=== PATIENT | female | born 1940 | race Caucasian/White ===

== ENCOUNTER 2017-04-08 16:42 | Inpatient (IN) | payer MEDICARE, OTHER ==
--- NOTE | 2017-04-08 17:34 | EDM.PDOC ---
ED HPI GENERAL MEDICAL PROBLEM - General Chief Complaint: Abdominal Pain Stated Complaint: upper abdominal pain Time Seen by Provider: 04/08/17 17:25 Source of Information: Reports: Patient History Limitations: Reports: No Limitations - History of Present Illness INITIAL COMMENTS - FREE TEXT/NARRATIVE: Seema is a 76 yo female who presents to the ER with complaints of indigestion. States she started having abdominal pain around 4 am this morning. States she tried taking some TUMS with no relief. Admits she has been nauseated all day but denies any emesis. States she has been to the bathroom quite a bit as well with frequent bowel movements (over 10) but denies any diarrhea. States she has not ate anything all day but has been able to drink some fluids. The pain is above the belly button and admits it goes into both upper quadrants. States she drank a glass of prune juice this morning d/t concern of constipation. Onset: Today Onset Date: 04/08/17 Onset Time: 04:00 Duration: Constant. No: Getting Worse Location: Reports: Abdomen Associated Symptoms: Reports: Nausea/Vomiting Bilateral Upper Abdominal Pain Score (Numeric/FACES): 9 - Related Data Allergies Allergy/AdvReac Type Severity Reaction Status Date / Time No Known Allergies Allergy Verified 04/08/17 16:59 Home Meds: Home Meds Aspirin [Halfprin] 81 mg PO DAILY 12/23/14 [History] Calcium Carb/D3/Magnesium/Zinc [Hknaioi-Cke-Flxu-Vit D] 2 tab PO DAILY 12/23/14 [History] Cholecalciferol (Vitamin D3) [Vitamin D] 2,000 unit PO DAILY 12/23/14 [History] Levothyroxine Sodium [Synthroid] 75 mcg PO DAILY 12/23/14 [History] Multivitamin [Multi-Vitamin Daily] 1 tab PO DAILY 12/23/14 [History] Simvastatin [Simvastatin] 20 mg PO BEDTIME 12/23/14 [History] Ascorbic Acid [Vitamin C] 1,000 mg PO DAILY 01/10/17 [History] Denosumab [Prolia] 60 mg SUBCUT ONETIME 01/10/17 [History] Past Medical History Cardiovascular History: Reports: Hypertension Genitourinary History: Reports: Other (See Below) Other Genitourinary History: nocturia Musculoskeletal History: Reports: Arthritis, Osteoporosis Endocrine/Metabolic History: Reports: Hypothyroidism, Vitamin D Deficiency, Other (See Below) Other Endocrine/Metabolic History: grave's disease - Past Surgical History HEENT Surgical History: Reports: Cataract Surgery, Eye Surgery Social & Family History - Tobacco Use Smoking Status *Q: Former Smoker Used Tobacco, but Quit: Yes Month Tobacco Last Used: 1994 ED ROS GENERAL - Review of Systems Review Of Systems: See Below Constitutional: Reports: Chills, Weakness, Decreased Appetite. Denies: Fever HEENT: Reports: No Symptoms Respiratory: Denies: Shortness of Breath, Wheezing, Cough Cardiovascular: Denies: Chest Pain, Dyspnea on Exertion, Lightheadedness GI/Abdominal: Reports: Abdominal Pain, Nausea, Other (frequent stools). Denies : Black Stool, Bloody Stool, Constipation, Diarrhea, Hematochezia, Melena, Vomiting : Reports: No Symptoms Musculoskeletal: Reports: Back Pain (low back ache, off an on) Skin: Reports: No Symptoms. Denies: Rash Neurological: Reports: No Symptoms ED EXAM, GI/ABD - Physical Exam Exam: See Below Exam Limited By: No Limitations General Appearance: Alert, No Apparent Distress Ears: Normal External Exam, Normal Canal, Hearing Grossly Normal, Normal TMs Nose: Normal Inspection, No Blood Throat/Mouth: Normal Inspection, Normal Lips, Normal Teeth (dentures), Normal Gums, Normal Oropharynx, Normal Voice, No Airway Compromise Head: Atraumatic, Normocephalic Neck: Normal Inspection, Supple Respiratory/Chest: No Respiratory Distress, Lungs Clear, Normal Breath Sounds, No Accessory Muscle Use, Chest Non-Tender Cardiovascular: Normal Peripheral Pulses, Regular Rate, Rhythm, No Edema, No Murmur GI/Abdominal Exam: Normal Bowel Sounds, No Organomegaly, No Distention, No Abnormal Bruit, No Mass, Tender (bilateral upper quadrants, worse in epigastric area) Extremities: Normal Inspection, No Pedal Edema, Normal Capillary Refill Neurological: Alert, Oriented, Normal Cognition Psychiatric: Normal Affect, Normal Mood Skin Exam: Warm, Dry, Intact, Normal Color, No Rash EKG INTERPRETATION EKG Date: 04/08/17 Time: 17:20 Rhythm: NSR QRS: LBBB Course - Vital Signs Last Recorded V/S: Last Vital Signs Temp 96.8 F 04/08/17 16:46 Pulse 63 04/08/17 16:46 Resp 20 04/08/17 16:46 BP 165/104 H 04/08/17 16:46 Pulse Ox 97 04/08/17 16:46 - Orders/Labs/Meds Orders: Active Orders 24 hr Category Date Time Status Abdomen Series w Chest 1V [CR] Stat Exams 04/08/17 17:08 Taken Labs: Laboratory Tests 04/08/17 04/08/17 04/08/17 Range/Units 17:08 17:08 17:41 WBC 9.1 (5.0-10.0) 10^3/uL RBC 4.21 (4.00-5.50) 10^6/uL Hgb 13.2 (12.0-16.0) g/dL Hct 40.0 (37.0-47.0) % MCV 95.0 H (82.0-94.0) fL MCH 31.4 (27.0-32.0) pg MCHC 33.0 (33.0-38.0) g/dL RDW Coeff of Jeri 13.1 (11.0-15.0) % Plt Count 267 (150-400) 10^3/uL Neut % (Auto) 87.9 H (35-85) % Lymph % (Auto) 8.6 L (10-55) % [place] % (Auto) 3.3 (0-16) % Eos % (Auto) 0.1 (0-5) % Baso % (Auto) 0.1 (0-3) % Neut # (Auto) 8.02 H (1.80-7.00) 10^3/uL Lymph # (Auto) 0.78 L (1.00-4.80) 10^3/uL [place] # (Auto) 0.30 (0.00-0.80) 10^3/uL Eos # (Auto) 0.01 (0.00-0.45) 10^3/uL Baso # (Auto) 0.01 10^3/uL Sodium 140 (136-145) mEq/L Potassium 4.7 D (3.5-5.0) mEq/L Chloride 103 (98-106) mEq/L Carbon Dioxide 28 (21-32) mmol/L BUN 22 H (7-18) mg/dL Creatinine 1.1 H (0.6-1.0) mg/dL Est Cr Clr Drug Dosing 27.16 mL/min Estimated GFR (MDRD) 48 L (>=60) mL/min Glucose 139 H D (75-99) mg/dL Calcium 9.5 (8.4-10.1) mg/dL Total Bilirubin 0.6 (0.0-1.0) mg/dL AST 30 (15-37) U/L ALT 34 (12-78) U/L Alkaline Phosphatase 54 (46-116) U/L Creatine Kinase 65 (21-215) U/L Troponin I 0.023 (0.00-0.06) ng/mL C-Reactive Protein 0.2 (0.2-0.8) mg/dL Total Protein 7.6 (6.4-8.2) g/dL Albumin 4.0 (3.4-5.0) g/dL Amylase 55 (25-115) U/L Urine Color Yellow (YELLOW) Urine Appearance Clear (CLEAR) Urine pH 5.5 (4.5-8.0) Ur Specific [place] 1.025 H (1.003-1.020) Urine Protein Trace H (NEGATIVE) mg/dL Urine Glucose (UA) Negative (NEGATIVE) mg/dL Urine Ketones >=160 H (NEGATIVE) mg/dL Urine Occult Blood Small H (NEGATIVE) Urine Nitrite Negative (NEGATIVE) Urine Bilirubin Negative (NEGATIVE) Urine Urobilinogen 0.2 (0.2-1.0) EU/dL Ur Leukocyte Esterase Negative (NEGATIVE) Urine RBC 0-5 (0-5) /HPF Urine WBC Not seen (0-5) /HPF Meds: Medications Discontinued Medications Generic Name Dose Route Start Last Admin Trade Name Freq PRN Reason Stop Dose Admin Al Hydroxide/Mg Hydroxide 30 0 ml 04/08/17 17:38 04/08/17 17:49 ml/ Lidocaine HCl 15 ml PO 04/08/17 17:39 45 ml ONETIME ONE Administration - Re-Assessments/Exams Free Text/Narrative Re-Assessment/Exam: Christine was given a GI cocktail with no relief. She admitted it caused her stomach to gurgle and became an uneasy feeling. Departure - Departure Time of Disposition: 18:33 Disposition: Refer to Observation Clinical Impression: Transient elevated blood pressure Abdominal pain Qualifiers: Abdominal location: epigastric Qualified Code(s): R10.13 - Epigastric pain Gastritis Qualifiers: Gastritis type: unspecified gastritis Chronicity: acute Gastritis bleeding: without bleeding Qualified Code(s): K29.00 - Acute gastritis without bleeding - Discharge Information Forms: ED Department Discharge - Problem List & Annotations (1) Abdominal pain SNOMED Code(s): 30188883 Code(s): R10.9 - UNSPECIFIED ABDOMINAL PAIN Status: Acute Current Visit: Yes Qualifiers: Abdominal location: epigastric Qualified Code(s): R10.13 - Epigastric pain (2) Gastritis SNOMED Code(s): 5192688 Code(s): K29.70 - GASTRITIS, UNSPECIFIED, WITHOUT BLEEDING Status: Acute Current Visit: Yes Qualifiers: Gastritis type: unspecified gastritis Chronicity: acute Gastritis bleeding: without bleeding Qualified Code(s): K29.00 - Acute gastritis without bleeding (3) Transient elevated blood pressure SNOMED Code(s): 33880873, 386215237 Code(s): R03.0 - ELEVATED BLOOD-PRESSURE READING, W/O DIAGNOSIS OF HTN Status: Acute Current Visit: Yes - Problem List Review Problem List Initiated/Reviewed/Updated: Yes - My Orders Last 24 Hours: My Active Orders 04/08/17 17:08 Abdomen Series w Chest 1V [CR] Stat - Assessment/Plan Admission H&P: Please use this note as an admission H&P Last 24 Hours: My Active Orders 04/08/17 17:08 Abdomen Series w Chest 1V [CR] Stat Plan: Abdominal films, laboratory work was grossly unremarkable. Last blood pressure reading was 187/72. Will admit to Dr. Hong's services under observation. Discussed Christine's current state with Dr. Hong via phone and he agreed with admission. Will monitor tonight and advance diet as tolerated. Pain medications ordered as well.
[2017-04-08] MEDS ORDERED: Alum Hydrox/Mag Hydrox/Simeth 30 ML, Lidocaine 2% 15 ML PO ONE ×2 (17:38)
[2017-04-08] MEDS ORDERED: fentaNYL 100 MCG/2 ML SDV IVPUSH PRN (18:48)
[2017-04-08] MEDS ORDERED: Acetaminophen 325 MG Tab PO PRN (18:48)
[2017-04-08] MEDS ORDERED: Docusate Sodium 100 MG Cap PO PRN (18:48)
[2017-04-08] MEDS: Sucralfate 1 GM Tab PO SCH ×2 (19:15→19:37)
[2017-04-08] MEDS: Lactated Ringers 1,000 ML IV SCH (19:16)
[2017-04-08] MEDS: Pantoprazole 40 MG Vial IVPUSH SCH (19:19)
[2017-04-08] MEDS: Enoxaparin 30 MG/0.3 ML Syringe SUBCUT SCH (19:21)
[2017-04-08] MEDS: Ondansetron 4 MG/2 ML SDV IV PRN (19:23)
[2017-04-08] MEDS: SIMVASTATIN 20 MG PO SCH (20:43)
[2017-04-09] MEDS: Sucralfate 1 GM Tab PO SCH ×4 (07:21→19:43)
[2017-04-09 07:59] LABS: CHLORIDE,CL 107 mEq/L (98-106); SODIUM,NA 142 mEq/L (136-145)
[2017-04-09] MEDS ORDERED: Levothyroxine 50 MCG Tab PO SCH (08:00)
--- NOTE | 2017-04-09 08:44 | PN ---
DATE: 04/09/2017 S: This is an elderly white female comes with nausea and vomiting. Admitted last night, dehydrated. O: On examination today, bowel sounds are decreased, tender in upper quadrant. LABORATORY DATA: Otherwise looks okay. ASSESSMENT: ABDOMINAL PAIN, QUESTION ETIOLOGY. P: We will ultrasound her gallbladder this morning. KEVAN/ROGELIO /[id number]
[2017-04-09] MEDS: Acetaminophen/HYDROcodone 325-5 MG Tab PO PRN ×3 (10:05→21:50)
[2017-04-09] MEDS: Lactated Ringers 1,000 ML IV SCH (10:08)
[2017-04-09] MEDS: Pantoprazole 40 MG Vial IVPUSH SCH (19:19)
[2017-04-09] MEDS: SIMVASTATIN 20 MG PO SCH (19:43)
[2017-04-09] MEDS: Enoxaparin 30 MG/0.3 ML Syringe SUBCUT SCH (19:43)
[2017-04-09] MEDS ORDERED: Temazepam 15 MG Cap PO PRN (19:45)
[2017-04-10] MEDS: Lactated Ringers 1,000 ML IV SCH ×2 (00:26→14:46)
[2017-04-10] MEDS: Acetaminophen/HYDROcodone 325-5 MG Tab PO PRN ×2 (05:25→19:41)
[2017-04-10] MEDS: Sucralfate 1 GM Tab PO SCH ×4 (06:48→19:41)
[2017-04-10] MEDS: LEVOTHYROXINE PO SCH (06:49)
[2017-04-10 07:56] LABS: CHLORIDE,CL 108 mEq/L (98-106); SODIUM,NA 142 mEq/L (136-145)
[2017-04-10] MEDS: Ondansetron 4 MG/2 ML SDV IV PRN (12:12)
[2017-04-10] MEDS: Pantoprazole 40 MG Vial IVPUSH SCH (19:41)
[2017-04-10] MEDS: Enoxaparin 30 MG/0.3 ML Syringe SUBCUT SCH (19:41)
[2017-04-10] MEDS: SIMVASTATIN 20 MG PO SCH (19:42)
[2017-04-11] MEDS: Acetaminophen/HYDROcodone 325-5 MG Tab PO PRN ×2 (00:08→07:20)
[2017-04-11] MEDS: Lactated Ringers 1,000 ML IV SCH ×2 (05:10→20:34)
[2017-04-11] MEDS: LEVOTHYROXINE PO SCH (07:17)
[2017-04-11] MEDS: Sucralfate 1 GM Tab PO SCH ×4 (07:17→20:28)
--- NOTE | 2017-04-11 07:21 | PN ---
DATE: 04/10/2017 S: Christine Argueta came in with abdominal pain. Her hemoglobin is down today, so I suspect she has probably had some GI bleeding, peptic ulcer disease. O: NECK: Supple. CHEST: Clear. CARDIAC: Regular. ABDOMEN: Severe tenderness, mid epigastric region. ASSESSMENT: PROBABLE PEPTIC ULCER DISEASE, ALTHOUGH HIDA SCAN IS PENDING FOR POSSIBLE GALLBLADDER. P: We will probably continue IV Protonix and probably schedule for an EGD. KEVAN/ROGELIO /[id number]
[2017-04-11 07:39] LABS: CHLORIDE,CL 109 mEq/L (98-106); SODIUM,NA 145 mEq/L (136-145)
[2017-04-11] MEDS ORDERED: Pantoprazole 40 MG Vial IVPUSH SCH (20:00)
[2017-04-11] MEDS: SIMVASTATIN 20 MG PO SCH (20:27)
[2017-04-11] MEDS: Enoxaparin 30 MG/0.3 ML Syringe SUBCUT SCH (20:28)
[2017-04-12 07:53] LABS: CHLORIDE,CL 107 mEq/L (98-106); SODIUM,NA 145 mEq/L (136-145)
[2017-04-12] MEDS: Lactated Ringers 1,000 ML IV SCH (07:58)
--- NOTE | 2017-04-12 08:13 | PN ---
DATE: 04/11/2017 S: Christine Argueta is an elderly white female comes in with nausea, vomiting and abdominal pain, admitted with diagnosis of probable peptic ulcer disease. Hemoglobin did go from 13 to down to 10.7. She is on IV Protonix. She is still little bit queasy. Ultrasound of the gallbladder looked okay but we could not get a HIDA scan on her. O: NECK: Supple. CHEST: Clear. CARDIAC: Regular. ABDOMEN: Mid epigastric tenderness. ASSESSMENT: PROBABLE PEPTIC ULCER DISEASE, QUESTION ETIOLOGY FOR CHOLECYSTITIS. SHE WILL HAVE AN EGD TOMORROW. CONTINUE IV PROTONIX AND THEN HIDA SCAN. IF SHE IS NOT BETTER, I HAVE TO CT HER ABDOMEN AND LOOK AT HER PANCREAS. KEVAN/ROGELIO /[id number]
[2017-04-12] MEDS: Sucralfate 1 GM Tab PO SCH ×2 (09:04→12:15)
[2017-04-12] MEDS: LEVOTHYROXINE PO SCH (09:22)
--- NOTE | 2017-04-12 09:41 | OR ---
DATE OF OPERATION: 04/12/2017 PREOPERATIVE DIAGNOSIS: EPIGASTRIC PAIN. POSTOPERATIVE DIAGNOSIS: EPIGASTRIC PAIN. SURGEON: Amado Rea MD PROCEDURE: ESOPHAGOGASTRODUODENOSCOPY WITH BIOPSIES X2, BJORN. 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 COMPLICATIONS: None. SPECIMEN: 1. Antral biopsy x2. 2. BJORN. FINDINGS: 1. Full-length EGD. 2. Large antral ulcers x2. 3. Moderate-sized hiatal hernia without esophagitis. RECOMMENDATIONS: I will recommend followup endoscopy 6 weeks to ensure healing and more comprehensive biopsies. INDICATIONS: The patient was admitted to the hospital with nausea and epigastric pain. Dr. Hong requested EGD. DESCRIPTION OF PROCEDURE: The patient was prepped and draped, placed in the left lateral decubitus position. A lubricated Olympus gastroscope was inserted over a bit and advanced to cricopharyngeus area with patient swallow, intubated into the esophagus. Esophageal lining was benign in its entire course. The Z- line was crisp and sharp around 36 cm. There is a moderate sized hiatal hernia present with minimal spontaneous reflux. No distal esophagitis, stricturing, ulceration, or Riley's changes seen. Scope was advanced into the stomach through the pylorus into the second portion of duodenum. This in the duodenal bulb were benign. The scope was brought back into the stomach and retroflexed the upper fundus and cardia where for the most part unremarkable. Good sized hernia was seen from below. Upon straightening, there may have been some minimal gastritis of the mid to distal antrum. The patient has 2 large ulcers in the antrum in its most distal portion, 1 near the pylorus and the other in the mid body of the antrum. These were deep with necrotic basis, very friable, and we elected not to biopsy the base at this time. We did do 2 biopsies of the rolled up edges and a CLOtest was obtained. No other polyps or lesions were seen. Air was then suctioned. Scope was removed without complication. IRMA/ROGELIO /[id number]
[2017-04-12 12:26] VITALS: BP 161/76
[2017-04-12] MEDS ORDERED: Propofol 200 MG/20 ML SDV IV ONE (16:24)
--- NOTE | 2017-04-15 07:20 | DISCH ---
HOSPITAL COURSE: This is an elderly white female who came in with moderate severe abdominal pain, nausea, vomiting, admitted with diagnosis of question peptic ulcer disease versus gallbladder disease. We did do an ultrasound of the gallbladder that looked okay. HIDA scan pending. EGD performed this morning revealed 2 large gastric ulcers. PHYSICAL EXAMINATION: NECK: On an examination prior to discharge, neck is supple. CHEST: Clear. CARDIAC: Regular. ABDOMEN: Minimal tenderness. LABORATORY DATA: Lab here in the hospital, her hemoglobin was 13.2 and then it went down to 11.1 probably from dilutional from the IV fluids. Although, she could have had some GI bleeding. Rest of lab looked good including urinalysis. C-reactive proteins are good. DISPOSITION: The patient now discharged home. See her back in a clinic next Saturday. DISCHARGE MEDICATIONS: Home medications except aspirin plus Carafate 1 g t.i.d. for 10 days and Protonix 40 one daily #30. DISCHARGE DIAGNOSIS: 1. NAUSEA AND VOMITING SECONDARY TO PEPTIC ULCER DISEASE. 2. HYPERLIPIDEMIA. 3. HYPOTHYROIDISM. KEVAN/ROGELIO /[id number]
== END 2017-04-12 13:15 | disposition home or self-care (01) | DRG 384 ==
LOC: CC.ED 16:42 → UNDOADMOB 18:45 → CC.MS 18:45 → INTOOBSV 18:48 → OBSVTOIN 18:48 → CC.MS 18:48 → UNDOADMOB 18:48 → CC.MS 04-10 08:18 → OBSVTOIN 04-10 08:18
PROVIDERS: ADMIT Physician Assistant Medical; ATTEND General Practice
DX: K27.9 Peptic ulcer, site unspecified, unspecified as acute or chronic, without hemorrhage or perforation (principal); R03.0 Elevated blood-pressure reading, without diagnosis of hypertension; K29.00 Acute gastritis without bleeding; R10.9 Unspecified abdominal pain; E86.0 Dehydration; E78.5 Hyperlipidemia, unspecified; E03.9 Hypothyroidism, unspecified; Z79.82 Long term (current) use of aspirin; Z79.899 Other long term (current) drug therapy; I10 Essential (primary) hypertension; M19.90 Unspecified osteoarthritis, unspecified site; M81.0 Age-related osteoporosis without current pathological fracture; E55.9 Vitamin D deficiency, unspecified; E05.00 Thyrotoxicosis with diffuse goiter without thyrotoxic crisis or storm; Z87.891 Personal history of nicotine dependence
CPT/HCPCS: 36415; 74022; 80053; 81001; 82150; 82550; 84484; 85025; 86140; 93005; 93010; 96361 ×2; 96372 ×2; 96374; 96375; 96376; 99220; 99225; 99284; A9270 ×2; G0378; 00740; 76705; 80048; 87081; 88305; 97161-GP; C9113; J1650; J2405; J2704; J3010; J7120

== ENCOUNTER → 2017-05-31 | Day surgery (SDC) | payer MEDICARE, OTHER ==
[~2017-05-31] MED LIST: Lactated Ringers 1,000 ML IV SCH; Propofol 200 MG/20 ML SDV IV ONE
[2017-05-31 11:07] VITALS: BP 143/79
--- NOTE | 2017-05-31 12:37 | OR ---
DATE OF OPERATION: 05/31/2017 PREOPERATIVE DIAGNOSIS: GASTRIC ULCER. POSTOPERATIVE DIAGNOSIS: GASTRIC ULCER. SURGEON: Amado Rea MD PROCEDURE: ESOPHAGOGASTRODUODENOSCOPY WITH BIOPSY X2. 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 COMPLICATIONS: None. SPECIMEN: Antral ulcer biopsy x2. FINDINGS: 1. Full-length EGD. 2. Almost completely healed gastric ulcer, antrum. RECOMMENDATIONS: Medical followup with Dr. Hong. INDICATIONS: The patient had a prior EGD 6 weeks ago. She had a large ulcer in her antrum with adherent clot which precluded any biopsies at that time. We elected to have a repeat EGD to ensure healing and to do routine biopsies. DESCRIPTION OF PROCEDURE: The patient was prepped and draped, placed in the left lateral decubitus position. A lubricated Olympus gastroscope was inserted over a bit and advanced to cricopharyngeus area and easily intubated into the esophagus. The esophageal lining was benign in its entire course. Z-line was crisp and sharp. There was no distal esophagitis, stricturing, ulceration, or Riley's changes. Scope advanced into the stomach through the pylorus into the 2nd portion of the duodenum and this and the duodenal bulb were benign. The scope was brought back into the stomach, retroflexed the upper fundus and cardia were unremarkable. Upon straightening, the rest of the fundus remains benign. In the mid antrum, patient's ulcer is almost completely healed, lining appears normal with a minimal slight erythema. 2 biopsies of that area were taken. No CLOtest required. Air was then suctioned. Scope was removed without complication. IRMA/ROGELIO /[id number]
== END ==
LOC: CC.SDS 08:46
PROVIDERS: ATTEND Family Medicine
DX: K31.9 Disease of stomach and duodenum, unspecified (principal); E78.5 Hyperlipidemia, unspecified; E03.9 Hypothyroidism, unspecified; E55.9 Vitamin D deficiency, unspecified; Z79.899 Other long term (current) drug therapy; Z98.890 Other specified postprocedural states
CPT/HCPCS: 43239; 88305; J2704; J7120; 00740

== ENCOUNTER 2018-09-24 17:54 | Observation (INO) | payer MEDICARE, OTHER ==
[2018-09-24 19:05] LABS: CHLORIDE,CL 105 mEq/L (98-106); SODIUM,NA 142 mEq/L (136-145)
--- NOTE | 2018-09-24 19:24 | EDM.PDOC ---
ED HPI GENERAL MEDICAL PROBLEM - General Chief Complaint: Neurological Problem Stated Complaint: passed out Time Seen by Provider: 09/24/18 17:59 Source of Information: Reports: Patient, Family (son) History Limitations: Reports: No Limitations - History of Present Illness INITIAL COMMENTS - FREE TEXT/NARRATIVE: Christine is an 78 yr old female who is brought into the ED via private vehicle with complains of a syncopal episode. She states she was sitting in her chair and suddenly passed out. States this is at least the 10th time this has happened since the end of June. She is wearing a cardiac event monitor but states she didn't have time to push the button. States she was just so out of it. She admits when it happened it was like a hot flash. Immediately afterwards she did have some dizziness and nausea but that has since subsided. She called her son approximately 10min after episode and presented to ED. Upon entrance into ED her gait was steady and she denied any presyncopal episodes. Christine was initially seen for a syncopal episode on the 30 of August and was admitted to the hospital under observation. It appears all labs were unremarkable. She underwent a chest x-ray and CT of the brain which showed no acute findings as well. She followed up in clinic on the . She had a carotid duplex and echocardiogram done which were unremarkable as well. Elected to proceed with cardiac event monitor. Blood pressure was elevated at her visit on the and heart rate was slightly high at 96. After review of previous vital signs that showed heart rate to routinely be in the 90-110 region we elected to start her on low dose beta aris, 12.5mg of metoprolol tartrate BID. Last dose was around 2:00 this afternoon. She admits from the till now she had no further episodes of syncope. States she was feeling well. Duration: Improving Location: Reports: Generalized - Related Data Allergies Allergy/AdvReac Type Severity Reaction Status Date / Time No Known Allergies Allergy Verified 09/24/18 18:00 Home Meds: Home Meds Calcium Carb/D3/Magnesium/Zinc [Iojrqfh-Sjt-Ckjj-Vit D] 2 tab PO BEDTIME [History] Cholecalciferol (Vitamin D3) [Vitamin D3] 2,000 unit PO BEDTIME 12/23/14 [ History] Levothyroxine Sodium [Synthroid] 75 mcg PO SUMOTUWETHFR 12/23/14 [History] Multivitamin [Multi-Vitamin Daily] 1 tab PO BEDTIME 12/23/14 [History] Simvastatin 20 mg PO BEDTIME 12/23/14 [History] Ascorbic Acid [Vitamin C] 1,000 mg PO BEDTIME 01/10/17 [History] Denosumab [Prolia] 60 mg SUBCUT ONETIME 01/10/17 [History] Aspirin [Adult Low Dose Aspirin EC] 81 mg PO BEDTIME 11/15/17 [History] Calcium Carbonate/Vitamin D3 [Calcium 600 + Vit D Tablet] 2 each PO BEDTIME 09/16 [History] Metoprolol Tartrate 12.5 mg PO BID 09/24/18 [History] Past Medical History Cardiovascular History: Reports: High Cholesterol, Hypertension Genitourinary History: Reports: Other (See Below) Other Genitourinary History: nocturia Musculoskeletal History: Reports: Arthritis, Osteoporosis Endocrine/Metabolic History: Reports: Hypothyroidism, Vitamin D Deficiency, Other (See Below) Other Endocrine/Metabolic History: grave's disease - Past Surgical History HEENT Surgical History: Reports: Cataract Surgery, Eye Surgery Social & Family History - Family History Family Medical History: Noncontributory Cardiac: Reports: Hypertension - Tobacco Use Smoking Status *Q: Former Smoker Used Tobacco, but Quit: Yes Month/Year Tobacco Last Used: 18y.o - Caffeine Use Caffeine Use: Reports: Coffee ED ROS GENERAL - Review of Systems Review Of Systems: See Below Constitutional: Reports: Chills. Denies: Fever, Night Sweats, Diaphoresis, Decreased Appetite HEENT: Reports: No Symptoms. Denies: Vision Change Respiratory: Denies: Shortness of Breath, Cough Cardiovascular: Reports: Lightheadedness, Syncope. Denies: Chest Pain, Palpitations GI/Abdominal: Reports: No Symptoms, Nausea. Denies: Abdominal Pain, Bloody Stool, Diarrhea, Vomiting : Denies: Discharge, Dysuria, Flank Pain, Frequency, Hematuria, Urgency Musculoskeletal: Reports: No Symptoms Neurological: Reports: Syncope. Denies: Confusion, Dizziness, Headache, Difficulty Walking Psychiatric: Reports: No Symptoms - Physical Exam Exam: See Below Exam Limited By: No Limitations General Appearance: Alert, No Apparent Distress Eye Exam: Bilateral Eye: EOMI, Normal Inspection Ears: Normal External Exam, Normal Canal, Hearing Grossly Normal, Normal TMs Nose: Normal Inspection, Normal Mucosa, No Blood Throat/Mouth: Normal Inspection, Normal Lips, Normal Teeth, Normal Gums, Normal Oropharynx, Normal Voice, No Airway Compromise Head Exam: Atraumatic, Normocephalic Neck: Normal Inspection, Supple Respiratory/Chest: No Respiratory Distress, Lungs Clear, Normal Breath Sounds, Chest Non-Tender Cardiovascular: Normal Peripheral Pulses, No Edema, No Murmur, Bradycardia GI/Abdominal: Normal Bowel Sounds, Soft, Non-Tender, No Organomegaly, No Distention Neuro Exam (Abbreviated): Alert, Oriented, CN II-XII Intact, Normal Cognition, Normal Gait, Normal Reflexes, No Motor/Sensory Deficits Extremities: Normal Inspection, Normal Capillary Refill Psychiatric: Normal Affect, Normal Mood Skin Exam: Warm, Dry, Intact, Normal Color, No Rash Course - Vital Signs Last Recorded V/S: Last Vital Signs Temp 98 F 09/24/18 18:30 Pulse 83 09/24/18 19:39 Resp 16 09/24/18 19:28 BP 123/76 09/24/18 19:39 Pulse Ox 98 09/24/18 19:28 - Orders/Labs/Meds Orders: Active Orders 24 hr Category Date Time Status EKG Documentation Completion [RC] STAT Care 09/24/18 18:30 Active Telemetry Monitoring [Cardiac Monitoring] [RC] . Care 09/24/18 18:58 Active DIRECTED EKG 12 Lead [EK] Routine Ther 09/24/18 18:24 Ordered Labs: Laboratory Tests 09/24/18 09/24/18 09/24/18 Range/Units 18:40 18:40 18:48 WBC 10.6 H (5.0-10.0) 10^3/uL RBC 4.27 (4.00-5.50) 10^6/uL Hgb 13.0 (12.0-16.0) g/dL Hct 40.4 (37.0-47.0) % MCV 94.6 H (82.0-94.0) fL MCH 30.4 (27.0-32.0) pg MCHC 32.2 L (33.0-38.0) g/dL RDW Coeff of Jeri 13.2 (11.0-15.0) % Plt Count 236 (150-400) 10^3/uL Neut % (Auto) 66.6 (35-85) % Lymph % (Auto) 20.6 (10-55) % [place] % (Auto) 9.0 (0-16) % Eos % (Auto) 3.5 (0-5) % Baso % (Auto) 0.3 (0-3) % Neut # (Auto) 7.03 H (1.80-7.00) 10^3/uL Lymph # (Auto) 2.18 (1.00-4.80) 10^3/uL [place] # (Auto) 0.95 H (0.00-0.80) 10^3/uL Eos # (Auto) 0.37 (0.00-0.45) 10^3/uL Baso # (Auto) 0.03 10^3/uL Sodium 142 (136-145) mEq/L Potassium 4.2 (3.5-5.0) mEq/L Chloride 105 (98-106) mEq/L Carbon Dioxide 30 (21-32) mmol/L BUN 21 H (7-18) mg/dL Creatinine 1.5 H (0.6-1.0) mg/dL Est Cr Clr Drug Dosing 20.78 mL/min Estimated GFR (MDRD) 33 L (>=60) mL/min Glucose 125 H D (75-99) mg/dL Calcium 9.3 (8.4-10.1) mg/dL Total Bilirubin 0.5 (0.0-1.0) mg/dL AST 83 H (15-37) U/L ALT 73 (12-78) U/L Alkaline Phosphatase 63 (46-116) U/L Creatine Kinase 70 (21-215) U/L Troponin I < 0.017 (0.00-0.06) ng/mL Total Protein 7.5 (6.4-8.2) g/dL Albumin 3.7 (3.4-5.0) g/dL Free T4 0.9 (0.8-1.6) ng/dL TSH, Ultra Sensitive 21.51 H (0.36-5.60) uIU/mL Urine Color Yellow (YELLOW) Urine Appearance Clear (CLEAR) Urine pH 7.5 (4.5-8.0) Ur Specific [place] 1.015 (1.003-1.020) Urine Protein Trace H (NEGATIVE) mg/dL Urine Glucose (UA) Negative (NEGATIVE) mg/dL Urine Ketones 15 H (NEGATIVE) mg/dL Urine Occult Blood Trace-intact H (NEGATIVE) Urine Nitrite Negative (NEGATIVE) Urine Bilirubin Negative (NEGATIVE) Urine Urobilinogen 0.2 (0.2-1.0) EU/dL Ur Leukocyte Esterase Small H (NEGATIVE) Urine RBC 0-5 (0-5) /HPF Urine WBC 5-10 H (0-5) /HPF Ur Epithelial Cells Few H (NOT SEEN) /HPF Urine Bacteria Few H (NOT SEEN) /HPF Urine Mucus Occasional H (NOT SEEN) /HPF Departure - Departure Time of Disposition: 19:58 Disposition: Refer to Observation Clinical Impression: AV block, Mobitz 1 Syncope Qualifiers: Encounter type: subsequent encounter - Discharge Information Referrals: Saul Dc PA-C [Primary Care Provider] - Forms: ED Department Discharge - Problem List & Annotations (1) AV block, Mobitz 1 SNOMED Code(s): 79082570 Code(s): I44.1 - ATRIOVENTRICULAR BLOCK, SECOND DEGREE Status: Acute (2) Syncope SNOMED Code(s): 061802230 Code(s): R55 - SYNCOPE AND COLLAPSE Status: Acute Priority: High Qualifiers: Encounter type: subsequent encounter - Problem List Review Problem List Initiated/Reviewed/Updated: Yes - My Orders Last 24 Hours: My Active Orders 09/24/18 18:24 EKG 12 Lead [EK] Routine 09/24/18 18:30 EKG Documentation Completion [RC] STAT 09/24/18 18:58 Telemetry Monitoring [Cardiac Monitoring] [RC] . DIRECTED - Assessment/Plan Admission H&P: Please use this note as an admission H&P Last 24 Hours: My Active Orders 09/24/18 18:24 EKG 12 Lead [EK] Routine 09/24/18 18:30 EKG Documentation Completion [RC] STAT 09/24/18 18:58 Telemetry Monitoring [Cardiac Monitoring] [RC] . DIRECTED Plan: Consulted with Dr. Avery (nursing educator) at [facility] in [place]. Dr. Avery recommended continuing with cardiac event monitor. Recommended stopping her metoprolol at this time. States if the cardiac event monitor doesn't show bradycardia, would like to implant a loop recorder. Christine has been stable in the ED with HR currently in the 70-80's. We will admit to Dr. Rea's services under observation with telemetry. Discussed findings with Christine and her son and both verbalized understanding. Christine was transferred to the floor in satisfactory condition. No further episodes since at home this afternoon.
[2018-09-24] MEDS ORDERED: Enoxaparin 30 MG/0.3 ML Syringe SUBCUT SCH (21:00)
[2018-09-24] MEDS ORDERED: Acetaminophen 325 MG Tab PO PRN (21:22)
[2018-09-24] MEDS ORDERED: Sodium Chloride 0.9% 10 ML Syringe FLUSH PRN (21:22)
[2018-09-24] MEDS ORDERED: Ondansetron 4 MG/2 ML SDV IV PRN (21:22)
[2018-09-24] MEDS ORDERED: Ondansetron 4 MG Tab.DIS PO PRN (21:22)
[2018-09-24] MEDS ORDERED: Aspirin 81 MG Tab.EC PO SCH (21:36)
[2018-09-25 13:57] VITALS: BP 110/66
[2018-09-25] MEDS ORDERED: Simvastatin 20 MG Tab PO SCH (20:00)
[2018-09-25] MEDS ORDERED: Aspirin 81 MG Tab.EC PO SCH (20:00)
--- NOTE | 2018-09-25 21:58 | PCM.DCSUM1 ---
Discharge Summary - Hospital Course Free Text/Narrative:: Patient presented to ER per private vehicle with complaints of syncope. She admits she was at rest, started to feel warm and had "passed out". This has happened multiple times over yasmeen last few months. She has been wearing an event monitor and didn't have time to even think about pressing the button. States feels like is having a hot flash when it occurs. Does feel dizzy and has nausea after the event. On arrival to ER, symptoms had passed. She had been previously admitted for syncopal episode in August. Has had normal labs. Has had CT of the brain which was negative. Echo and carotid ultrasound have been done and are unremarkable. At her last visit at the clinic, heart rate was in the 90s. She was placed on metoprolol 12.5 mg BID. Work up in the ER did show second degree Mobitz I in the ER. Singh spoke with Dr. Avery. Suggested to hold metoprolol and monitor. Labs unremarkable in ER. Diagnosis: Stroke: No Modified Jw Scale: No Symptoms at All Modified [place] Scale Score: 0 - Discharge Data Discharge Date: 09/25/18 Discharge Disposition: Home, Self-Care 01 Condition: Good - Patient Summary/Data Complications: none Hospital Course: Patient is feeling good today. Denies feeling lightheaded. No nausea. NO shortness of breath or chest pain. Heart rhythm converted last evening to NSR. Appetite has been good. She is ambulating around without symptoms. Labs today unremarkable. Will discharge home. Hold Metoprolol. Continue with her event monitor. See Dr. Avery next week. - Patient Instructions Diet: Usual Diet as Tolerated Activity: As Tolerated - Discharge Plan *PRESCRIPTION DRUG MONITORING PROGRAM REVIEWED*: No *COPY OF PRESCRIPTION DRUG MONITORING REPORT IN PATIENT EMILY: No Home Medications: Home Meds Calcium Carb/D3/Magnesium/Zinc [Adnvvww-Mzp-Sdxd-Vit D] 2 tab PO BEDTIME [History] Cholecalciferol (Vitamin D3) [Vitamin D3] 2,000 unit PO BEDTIME 12/23/14 [ History] Levothyroxine Sodium [Synthroid] 75 mcg PO SUMOTUWETHFR 12/23/14 [History] Multivitamin [Multi-Vitamin Daily] 1 tab PO BEDTIME 12/23/14 [History] Simvastatin 20 mg PO BEDTIME 12/23/14 [History] Ascorbic Acid [Vitamin C] 1,000 mg PO BEDTIME 01/10/17 [History] Denosumab [Prolia] 60 mg SUBCUT ONETIME 01/10/17 [History] Aspirin [Adult Low Dose Aspirin EC] 81 mg PO BEDTIME 11/15/17 [History] Calcium Carbonate/Vitamin D3 [Calcium 600 + Vit D Tablet] 2 each PO BEDTIME 09/16 [History] Patient Handouts: Syncope Forms: ED Department Discharge Referrals: Daniele Avery MD [Ordering Only Provider] - (See Dr. Avery next week on October 02. Need to call clinic for time) - Discharge Summary/Plan Comment DC Time >30 min.: No - General Info Date of Service: 09/25/18 Admission Dx/Problem (Free Text: AV Block Mobitz Type I Near Syncope Functional Status: Reports: Pain Controlled, Tolerating Diet, Ambulating - Review of Systems General: Denies: Fever, Weakness, Fatigue, Malaise HEENT: Reports: No Symptoms Pulmonary: Denies: Shortness of Breath, Cough Cardiovascular: Denies: Chest Pain, Edema, Lightheadedness Gastrointestinal: Denies: Abdominal Pain, Nausea, Vomiting Genitourinary: Reports: No Symptoms Musculoskeletal: Reports: No Symptoms Skin: Reports: No Symptoms Neurological: Reports: No Symptoms - Patient Data Vitals - Most Recent: Last Vital Signs Temp 97.2 F 09/25/18 12:00 Pulse 86 09/25/18 12:00 Resp 16 09/25/18 12:00 BP 110/66 09/25/18 12:00 Pulse Ox 99 09/25/18 12:00 Weight - Most Recent: 96 lb 6.4 oz Lab Results - Last 24 hrs: Laboratory Results - last 24 hr 09/25/18 Range/Units 06:55 Sodium 144 (136-145) mEq/L Potassium 4.2 (3.5-5.0) mEq/L Chloride 108 H (98-106) mEq/L Carbon Dioxide 28 (21-32) mmol/L BUN 18 (7-18) mg/dL Creatinine 1.1 H (0.6-1.0) mg/dL Est Cr Clr Drug Dosing 28.16 mL/min Estimated GFR (MDRD) 48 L (>=60) mL/min Glucose 92 D (75-99) mg/dL Calcium 9.0 (8.4-10.1) mg/dL Creatine Kinase 60 (21-215) U/L Troponin I 0.065 H (0.00-0.06) ng/mL Med Orders - Current: Current Medications Discontinued Medications Acetaminophen (Tylenol) 650 mg PO Q4H PRN PRN Reason: Pain (Mild 1-3)/fever Aspirin (Halfprin) 81 mg PO BEDTIME CORINNE Aspirin (Halfprin) 81 mg PO BEDTIME CORINNE Last Admin: 09/24/18 21:56 Dose: 81 mg Enoxaparin Sodium (Lovenox) 30 mg SUBCUT Q24H CORINNE Last Admin: 09/24/18 21:56 Dose: 30 mg Levothyroxine Sodium (Levothyroxine) 75 mcg PO DAILY [facility] Ondansetron HCl (Zofran Odt) 4 mg PO Q4H PRN PRN Reason: nausea, able to take PO Ondansetron HCl (Zofran) 4 mg IV Q4H PRN PRN Reason: Nausea/Vomiting Simvastatin (Zocor) 20 mg PO BEDTIME [facility] Sodium Chloride (Saline Flush) 10 ml FLUSH ASDIRECTED PRN PRN Reason: Keep Vein Open - Exam General: Reports: Alert, Oriented HEENT: Reports: Mucous Membr. Moist/[place]ck: Reports: Supple Lungs: Reports: Clear to Auscultation, Normal Respiratory Effort Cardiovascular: Reports: Regular Rate, Regular Rhythm GI/Abdominal Exam: Normal Bowel Sounds, Soft, Non-Tender Extremities: Normal Inspection, No Pedal Edema Skin: Reports: Warm, Dry Neurological: Reports: No New Focal Deficit
[2018-09-26] MEDS ORDERED: Levothyroxine 150 MCG Tab PO SCH (08:00)
== END 2018-09-25 13:42 | disposition home or self-care (01) ==
LOC: CC.ED 17:54 → CC.MS 20:04 → CC.ED 20:15 → CC.MS 21:11 → UNDOADMOB 21:11
PROVIDERS: ADMIT Physician Assistant Medical; ATTEND Family Medicine
DX: R55 Syncope and collapse (principal); I44.1 Atrioventricular block, second degree; I10 Essential (primary) hypertension; E78.00 Pure hypercholesterolemia, unspecified; E03.9 Hypothyroidism, unspecified; E05.00 Thyrotoxicosis with diffuse goiter without thyrotoxic crisis or storm; Z87.891 Personal history of nicotine dependence; Z79.82 Long term (current) use of aspirin; Z79.899 Other long term (current) drug therapy
CPT/HCPCS: 36415; 80048; 80053; 81001; 82550; 84439; 84443; 84484; 85025; 93005; 96372; 99285-25; A9270-GY; G0378; J1650

== ENCOUNTER 2023-04-10 17:14 | Emergency (ER) | payer MEDICARE, OTHER ==
[2023-04-10 17:35] LABS: APPEARANCE,URINE CLEAR (CLEAR); BILIRUBIN,URINE NEGATIVE (NEGATIVE); COLOR,URINE YELLOW (YELLOW); GLUCOSE,URINE NEGATIVE (NEGATIVE); KETONES,URINE 40 mg/dL (NEGATIVE); LEUKOCYTE ESTERASE,URINE TRACE (NEGATIVE); NITRITE,URINE NEGATIVE (NEGATIVE); OCCULT BLOOD,URINE TRACE-INTACT (NEGATIVE); PH,URINE 6.5 (4.5-8.0); PROTEIN,URINE TRACE mg/dL (NEGATIVE); UROBILINOGEN,URINE 0.2 EU/dL (0.2-1.0)
[2023-04-10] MEDS ORDERED: Sodium Chloride 0.9% 10 ML Syringe FLUSH PRN (17:42)
[2023-04-10 17:45] LABS: AMORPHOUS SEDIMENT,URINE FEW /HPF (NOT SEEN); BACTERIA,URINE OCCASIONAL /HPF (NOT SEEN); EPITHELIAL CELLS,URINE FEW /HPF (NOT SEEN); RBC,URINE 0-5 /HPF (0-5); WBC,URINE 0-5 /HPF (0-5)
[2023-04-10 17:59] LABS: BASOPHILS ABSOLUTE AUTO 0.03 10^3/uL (0.00-0.50); BASOPHILS PERCENT AUTO 0.3 % (0-1); EOSINOPHILS ABSOLUTE AUTO 0.01 10^3/uL (0.00-1.50); EOSINOPHILS PERCENT AUTO 0.1 % (0-6); HEMATOCRIT 40.4 % (37.0-47.0); HEMOGLOBIN 13.7 g/dL (12.0-16.0); IMMATURE GRAN ABSOLUTE AUTO 0.01 10^3/uL (0.00-0.49); IMMATURE GRAN PERCENT AUTO 0.1 % (0.0-4.9); LYMPHOCYTES PERCENT AUTO 9.4 % (24-44); MEAN CORPUSCULAR HEMOGLOBIN 30.7 pg (27.0-32.0); MEAN CORPUSCULAR HGB CONC 33.9 g/dL (32.0-36.0); MEAN CORPUSCULAR VOLUME 90.6 fL (83.0-97.0); MONOCYTES ABSOLUTE AUTO 0.44 10^3/uL (0.00-1.50); MONOCYTES PERCENT AUTO 3.7 % (0-10); NEUTROPHILS ABSOLUTE AUTO 10.15 x10^3/uL (1.80-8.00); NEUTROPHILS PERCENT AUTO 86.4 % (41-71); PLATELET COUNT,PLT 245 10^3/uL (150-400); RED BLOOD CELL COUNT 4.46 x10^6/uL (4.00-5.50); WHITE BLOOD CELL COUNT,WBC 11.7 10^3/uL (4.0-11.0)
[2023-04-10 18:12] LABS: ALANINE AMINOTRANSFERASE,ALT 39 U/L (12-78); ALBUMIN 3.9 g/dL (3.4-5.0); ALKALINE PHOSPHATASE 51 U/L (46-116); ASPARTATE AMNIOTRANSFERASE,AST 23 U/L (15-37); BILIRUBIN TOTAL 0.4 mg/dL (0.0-1.0); BLOOD UREA NITROGEN,BUN 24 mg/dL (7-18); C-REACTIVE PROTEIN 0.05 mg/dL (<=0.30); CALCIUM 9.7 mg/dL (8.4-10.1); CARBON DIOXIDE,CO2 27 mmol/L (21-32); CHLORIDE,CL 100 mEq/L (98-106); CREATININE 1.2 mg/dL (0.6-1.0); GLUCOSE RANDOM 135 mg/dL (75-99); POTASSIUM,K 4.6 mEq/L (3.5-5.0); SODIUM,NA 138 mEq/L (136-145)
[2023-04-10 18:13] LABS: ESTIMATED GFR 45 mL/min (>=60)
[2023-04-10] MEDS: Polyethylene Glycol 3350 Powder 17 GM Packet PO ONE (19:33)
[2023-04-10 20:04] VITALS: BP 130/76; PULSE 68
[2023-04-11] MEDS: Iopamidol 755 Mg/ML 100 ML Bottle IVPUSH ONE (07:29)
== END 2023-04-10 19:45 | disposition home or self-care (01) ==
LOC: CC.ED 17:14
DX: K59.01 Slow transit constipation (principal); E78.00 Pure hypercholesterolemia, unspecified; I10 Essential (primary) hypertension; E03.9 Hypothyroidism, unspecified; Z95.0 Presence of cardiac pacemaker; Z79.82 Long term (current) use of aspirin; Z79.899 Other long term (current) drug therapy
CPT/HCPCS: 36415; 74177; 80053; 81001; 85025; 86140; 99284; A9270-GY

== ENCOUNTER 2025-02-17 07:19 | Day surgery (SDC) | payer MEDICARE, OTHER ==
[2025-02-17] MEDS: Lactated Ringers 1,000 ML IV SCH (07:44)
[2025-02-17] MEDS ORDERED: Metoprolol Tartrate 5 MG/5 ML SDV ONE (08:02)
[2025-02-17] MEDS ORDERED: Propofol 200 MG/20 ML SDV ONE (08:02)
[2025-02-17 09:33] VITALS: BP 113/53; PULSE 100
== END 2025-02-17 09:25 | disposition home or self-care (01) ==
LOC: CC.SDS 07:19
PROVIDERS: ATTEND Family Medicine
DX: K57.30 Diverticulosis of large intestine without perforation or abscess without bleeding (principal); R93.89 Abnormal findings on diagnostic imaging of other specified body structures; I10 Essential (primary) hypertension; E03.9 Hypothyroidism, unspecified; Z79.82 Long term (current) use of aspirin; Z79.899 Other long term (current) drug therapy; Z79.890 Hormone replacement therapy
CPT/HCPCS: J2704; J3490; J7120